=== PATIENT | male | born 1995 | race African-American/Black ===

== ENCOUNTER 2025-08-14 22:42 | Emergency (ER) | payer MEDICAID, OTHER ==
[~2025-08-14] VITALS: Ht 182.9 cm; Wt 96.2 kg
[2025-08-14 22:48] VITALS: O2SAT 99
[2025-08-15 02:23] VITALS: BP 141/80; PULSE 72; RESP 16; TEMP 37.1; O2SAT 100
[2025-08-15 02:41] LABS: CLARITY URINE CLEAR (CLEAR); COLOR URINE YELLOW (YELLOW); GLUCOSE URINE NEGATIVE (NEGATIVE); KETONES URINE TRACE (NEGATIVE); LEUKOCYTE ESTERASE URINE NEGATIVE (NEGATIVE); NITRITE URINE NEGATIVE (NEGATIVE); OCCULT BLOOD URINE NEGATIVE (NEGATIVE); PH URINE 5.5 (4.5-8.0); PROTEIN URINE NEGATIVE (NEGATIVE); SPECIFIC GRAVITY URINE 1.024 (1.005-1.030); UROBILINOGEN URINE 0.2 E.U./dL (0.2-1.0)
== END 2025-08-15 03:51 | disposition home or self-care (01) ==
LOC: ER 22:42
DX: R21 Rash and other nonspecific skin eruption (principal); Z79.899 Other long term (current) drug therapy
CPT/HCPCS: 81003; 99283

== ENCOUNTER 2025-09-04 14:18 | Emergency (ER) | payer OTHER ==
[~2025-09-04] VITALS: Ht 182.9 cm; Wt 92.0 kg
[2025-09-04 14:40] VITALS: TEMP 36.8; O2SAT 100
[2025-09-04] MEDS ORDERED: DOXYCYCLINE HYCLATE 100MG CAPSULE PO ONE (15:30)
[2025-09-04] MEDS ORDERED: CEFTRIAXONE SODIUM 500MG VIAL IM ONE (15:30)
[2025-09-04 16:12] LABS: CLARITY URINE TURBID (CLEAR); COLOR URINE DARK YELLOW (YELLOW)
[2025-09-04 16:13] LABS: GLUCOSE URINE NEGATIVE (NEGATIVE); KETONES URINE 1+ (NEGATIVE); LEUKOCYTE ESTERASE URINE NEGATIVE (NEGATIVE); NITRITE URINE NEGATIVE (NEGATIVE); OCCULT BLOOD URINE NEGATIVE (NEGATIVE); PH URINE 5.5 (4.5-8.0); PROTEIN URINE 1+ (NEGATIVE); SPECIFIC GRAVITY URINE 1.037 (1.005-1.030); UROBILINOGEN URINE 1.0 E.U./dL (0.2-1.0)
[2025-09-04 16:18] LABS: RBC URINE 0-2 /hpf (0-2); SQUAMOUS EPITHELIAL CELL URINE RARE /lpf (RARE/1+)
[2025-09-04 16:19] LABS: AMORPHOUS SEDIMENT URINE 1+ /lpf; BACTERIA URINE 4+
[2025-09-04] MEDS ORDERED: METR-167 MT (17:23)
[2025-09-04] MEDS: DEXAMETHASONE 10 MG/ML VIAL IV ONE (18:32)
[2025-09-04] MEDS: KETOROLAC 30MG/ML VIAL IM ONE (18:32)
[2025-09-04 18:40] VITALS: BP 129/78; PULSE 82; RESP 14; O2SAT 100
[2025-09-06 09:07] LABS: HSV TYPE 2 SPECIFIC AB IGG Non Reactive (Non Reactive)
[2025-09-07 04:07] LABS: CHLAMYDIA TRACHOMATIS NAA Negative (Negative); NEISSERIA GONORRHOEAE NAA Negative (Negative)
== END 2025-09-04 18:56 | disposition home or self-care (01) ==
LOC: ER 14:42
DX: J02.9 Acute pharyngitis, unspecified (principal)
CPT/HCPCS: 99284; 96374; 86695; 86696; 87491; 87591; 81003; 36415; 96372; J1885; J1100

== ENCOUNTER 2025-09-13 10:20 | Emergency (ER) | payer OTHER ==
[~2025-09-13] VITALS: Ht 182.9 cm; Wt 95.0 kg
[~2025-09-13 10:20] MED LIST: METR-167 MT
[2025-09-13 11:02] VITALS: TEMP 36.9; O2SAT 100
[2025-09-13] MEDS ORDERED: FLUC150T46 MT (12:24)
[2025-09-13] MEDS ORDERED: VISCOUS LIDOCAINE 2% 15 ML UDC MM ONE (12:30)
[2025-09-13 12:40] VITALS: BP 133/82; PULSE 87; RESP 14; O2SAT 99
== END 2025-09-13 12:46 | disposition home or self-care (01) ==
LOC: ER2 10:30 → ER 12:46
DX: R07.0 Pain in throat (principal); B37.0 Candidal stomatitis; Z98.890 Other specified postprocedural states
CPT/HCPCS: 87070; 99283